=== PATIENT | female | born 2005 | race Caucasian/White ===

== ENCOUNTER 2024-02-06 07:49 | Emergency (ER) | payer BC, OTHER ==
[~2024-02-06] VITALS: Ht 157.5 cm; Wt 47.4 kg
[~2024-02-06 07:49] MED LIST: NO HOME MEDS
[2024-02-06 08:32] VITALS: BP 112/68; PULSE 78; TEMP 97.3; O2SAT 100
[2024-02-06] MEDS ORDERED: [UNRECOGNIZED DRUG - OTHER] (08:39)
[2024-02-06] MEDS ORDERED: TRIF7.5D5 RIGHTEYE (08:39)
[2024-02-06 10:05] LABS: ALANINE AMINOTRANSFERASE 23 U/L (12-78); ALKALINE PHOSPHATASE 63 IU/L (20-180); ANION GAP 13 (8-16); ASPARTATE AMINO TRANSFERASE 22 U/L (10-37); BILIRUBIN,TOTAL 0.7 MG/DL (0.1-1.0); BLOOD UREA NITROGEN 19 MG/DL (7-18); BUN/CREATININE RATIO 25.7 (10.0-20.0); CALCIUM 8.6 MG/DL (8.5-10.1); CHLORIDE 104 MMOL/L (99-107); CREATININE 0.74 MG/DL (0.40-0.90); GLUCOSE 90 MG/DL (70-104); SODIUM 142 MMOL/L (135-145); TOTAL CARBON DIOXIDE 25.3 MMOL/L (24-32); TOTAL PROTEIN 8.1 G/DL (6.4-8.2); eCRCL 92 ML/MIN; eGFR > 90 ML/MIN
[2024-02-06 10:10] LABS: POTASSIUM 3.5 MMOL/L (3.5-5.1)
[2024-02-06 10:11] LABS: HCG SERUM QL NEGATIVE
[2024-02-06 10:38] LABS: BILIRUBIN,URINE NEGATIVE (Neg); COLOR,URINE YELLOW (Yellow); GLUCOSE, URINE NEGATIVE (Neg); KETONES,URINE 40 mg/dl (Neg); LEUKOCYTE ESTERASE ,URINE NEGATIVE (Neg); NITRITES, URINE NEGATIVE (Neg); OCCULT BLOOD,URINE TRACE-INTACT (Neg); PH,URINE 5.5 (4.8-8.0); PROTEIN,URINE TRACE mg/dl (Neg); UROBILINOGEN,URINE 0.2 E.U/dL (0.2-1.0)
[2024-02-06 10:39] LABS: CLARITY,URINE SLIGHTLY CLOUDY (Clear); UA COLLECTION TYPE CLN CATCH MIDSTREAM
[2024-02-06 10:47] LABS: MUCUS STRANDS MODERATE /LPF (Neg); SQUAMOUS EPITHELIAL CELL,UR MODERATE /LPF (FEW)
[2024-02-06 10:48] LABS: BACTERIA,URINE FEW /HPF (Neg); RBC,URINE 0-2 /HPF (0-2); WBC,URINE 0-4 /HPF (0-4)
[2024-02-06] MEDS ORDERED: ketorolac trometh. 30mg/ml inj. IV ONE (11:10)
[2024-02-06] MEDS ORDERED: NAPR-56 PO (11:11)
[2024-02-06 11:20] VITALS: RESP 18
[2024-02-06] MEDS: ketorolac tromethamine 15mg/ml inj. IV ONE (11:20)
== END 2024-02-06 11:27 | disposition home or self-care (01) ==
LOC: ER 07:50
DX: M54.59 Other low back pain (principal); G89.29 Other chronic pain; Z79.899 Other long term (current) drug therapy; F17.200 Nicotine dependence, unspecified, uncomplicated; Z88.0 Allergy status to penicillin
CPT/HCPCS: 36415; 73502; 80053; 81001; 84703; 96374; 99284; J1885

== ENCOUNTER 2024-06-24 17:01 | Emergency (ER) | payer BC ==
[~2024-06-24] VITALS: Ht 157.5 cm; Wt 50.0 kg
[2024-06-24 18:24] LABS: BILIRUBIN,URINE NEGATIVE (Neg); CLARITY,URINE SLIGHTLY CLOUDY (Clear); COLOR,URINE YELLOW (Yellow); GLUCOSE, URINE NEGATIVE (Neg); KETONES,URINE >=80 mg/dl (Neg); LEUKOCYTE ESTERASE ,URINE NEGATIVE (Neg); NITRITES, URINE NEGATIVE (Neg); OCCULT BLOOD,URINE NEGATIVE (Neg); PH,URINE 5.5 (4.8-8.0); PROTEIN,URINE NEGATIVE (Neg); UA COLLECTION TYPE NON-SPECIFIED; UROBILINOGEN,URINE 0.2 E.U/dL (0.2-1.0)
[2024-06-24 18:26] LABS: URINE HCG NEGATIVE (NEG)
[2024-06-24 18:29] LABS: BASOPHILS # (AUTO) 0.1 X10'3 (0-0.2); EOSINOPHILS # (AUTO) 0.4 X10'3 (0-0.9); EOSINOPHILS % (AUTO) 6.5 % (0-6); HEMATOCRIT 36.2 % (35.0-45.0); LYMPHOCYTES # (AUTO) 1.7 X10'3 (1.1-4.8); LYMPHOCYTES % (AUTO) 28.6 % (21-51); MEAN CORPUSCULAR HEMOGLOBIN 28.9 PG (27.0-31.0); MEAN CORPUSCULAR HGB CONC 33.1 g/dL (33.0-36.5); MEAN CORPUSCULAR VOLUME 87.1 FL (78-98); MONOCYTES # (AUTO) 0.5 X10'3 (0-0.9); MONOCYTES % (AUTO) 8.8 % (2-12); NEUTROPHILS # (AUTO) 3.4 X10'3 (1.8-7.7); NEUTROPHILS % (AUTO) 55.1 % (42-75); PLATELET COUNT 247 X10'3 (140-440); RED BLOOD COUNT 4.15 X10'6 (4.20-5.60); RED CELL DISTRIBUTION WIDTH 13.4 % (11.5-14.5); WHITE BLOOD COUNT 6.1 X10'3 (4.5-11.0)
[2024-06-24 18:32] LABS: URINE AMPHETAMINE SCREEN NEGATIVE (Neg); URINE BARBITUATE SCREEN NEGATIVE (Neg); URINE BENZODIAZEPINES SCREEN NEGATIVE (Neg); URINE CANNABINOID SCREEN POSITIVE (Neg); URINE COCAINE SCREEN NEGATIVE (Neg); URINE METHADONE SCREEN NEGATIVE (Neg); URINE OPIATE SCREEN NEGATIVE (Neg); URINE PHENCYCLIDINE SCREEN NEGATIVE (Neg)
[2024-06-24 18:35] LABS: BACTERIA,URINE 2+ /HPF (Neg); RBC,URINE 0-2 /HPF (0-2); SQUAMOUS EPITHELIAL CELL,UR MANY /LPF (FEW)
[2024-06-24] MEDS ORDERED: LORazepam 0.5 MG tablet PO PRN (18:35)
[2024-06-24 18:48] LABS: ANION GAP 10 (8-16); BLOOD UREA NITROGEN 15 MG/DL (7-18); BUN/CREATININE RATIO 18.3 (10.0-20.0); CALCIUM 8.9 MG/DL (8.5-10.1); CHLORIDE 105 MMOL/L (99-107); CREATININE 0.82 MG/DL (0.40-0.90); ETHANOL < 10 MG/DL (<10); GLUCOSE 80 MG/DL (70-104); POTASSIUM 3.2 MMOL/L (3.5-5.1); SODIUM 140 MMOL/L (135-145); THYROID STIMULATING HORMONE 0.45 ulU/ml (0.34-4.50); TOTAL CARBON DIOXIDE 25.1 MMOL/L (24-32); eCRCL 87 ML/MIN; eGFR 90 ML/MIN
[2024-06-24] MEDS ORDERED: NAPR-996 PO (20:14)
[2024-06-24] MEDS ORDERED: HYDR-3717 PO (20:14)
[2024-06-24] MEDS ORDERED: ESCI-8 PO (20:14)
[2024-06-24] MEDS ORDERED: MIRT-87 PO (20:14)
[2024-06-24] MEDS: ondansetron 4mg rapidly disintigrating tab PO ONE (20:45)
[2024-06-24] MEDS ORDERED: hydrOXYzine 10 MG tablet PO PRN (21:25)
[2024-06-24] MEDS ORDERED: naproxen 500mg tablet PO PRN (21:25)
[2024-06-25] MEDS: mirtazapine 15mg tablet PO PRN (02:12)
[2024-06-25 07:47] LABS: ALANINE AMINOTRANSFERASE 24 U/L (12-78); ALBUMIN/GLOBULIN RATIO 1.1 (1.1-1.5); ALKALINE PHOSPHATASE 42 IU/L (20-180); ASPARTATE AMINO TRANSFERASE 27 U/L (10-37); BILIRUBIN,DIRECT 0.2 MG/DL (0-0.3); BILIRUBIN,TOTAL 0.8 MG/DL (0.1-1.0); TOTAL PROTEIN 7.6 G/DL (6.4-8.2)
[2024-06-25] MEDS: ESCITALOPRAM 10 mg tablet 10 MG TABLET PO SCH (08:36)
[2024-06-25 09:33] VITALS: BP 96/64; PULSE 68; RESP 18; TEMP 97.8; O2SAT 99
[2024-06-25] MEDS ORDERED: ESCI10TA PO (11:44)
== END 2024-06-25 12:06 | disposition home or self-care (01) ==
LOC: ER 17:01
DX: R45.851 Suicidal ideations (principal); G89.29 Other chronic pain; Z88.0 Allergy status to penicillin; Z79.899 Other long term (current) drug therapy
CPT/HCPCS: 36415; 80048; 80076; 80305; 80320; 81001; 81025; 84443; 85025; 87811; 99285

== ENCOUNTER 2025-10-15 23:54 | Emergency (ER) | payer BC ==
[~2025-10-15] VITALS: Ht 157.5 cm; Wt 45.5 kg
[~2025-10-15 23:54] MED LIST changes: +ESCI-8 PO; +ESCI10TA PO; +HYDR-3717 PO; +MIRT-87 PO; +NAPR-1168 PO
[2025-10-16 01:21] LABS: LEUKOCYTE ESTERASE ,URINE NEGATIVE (Neg); NITRITES, URINE NEGATIVE (Neg); OCCULT BLOOD,URINE NEGATIVE (Neg); URINE HCG NEGATIVE (NEG)
[2025-10-16 01:37] LABS: URINE AMPHETAMINE SCREEN NEGATIVE (Neg); URINE BARBITUATE SCREEN NEGATIVE (Neg); URINE BENZODIAZEPINES SCREEN NEGATIVE (Neg); URINE CANNABINOID SCREEN NEGATIVE (Neg); URINE COCAINE SCREEN NEGATIVE (Neg); URINE METHADONE SCREEN NEGATIVE (Neg); URINE OPIATE SCREEN NEGATIVE (Neg); URINE PHENCYCLIDINE SCREEN NEGATIVE (Neg)
[2025-10-16 01:45] LABS: CREATININE 0.81 MG/DL (0.40-0.90); TOTAL CARBON DIOXIDE 27.6 MMOL/L (24-32); eCRCL 79 ML/MIN; eGFR 90 ML/MIN
--- NOTE | 2025-10-16 01:49 | Physician Documentation ---
History of Present Illness ~ Chief Complaint: 5149 Stated Complaint: EVAL [employer] Time Seen by MD: 01:48 Primary Medical Doctor: gabo chauhan Mode of Arrival: POV HPI Patient presents to the emergency room brought in on 5150 for harm to herself. She has been arguing with her parents and began cutting herself. She denies SI. Medication Reconciliation Allergies: Coded Allergies: Penicillins (Unverified Allergy, Unknown, 06/24/24) Scheduled Escitalopram Oxalate (Escitalopram Oxalate), 1 TAB PO QAM, (Reported) Escitalopram Oxalate (Lexapro), 1 TAB PO DAILY Scheduled PRN Hydroxyzine Hcl* (Atarax*), 1-2 TAB PO BID PRN for anxiety, (Reported) Mirtazapine (Mirtazapine), 1 TAB PO HS PRN for sleep, (Reported) Naproxen (Naproxen), 1 TAB PO Q12H PRN for pain, (Reported) Miscellaneous Medications Home Med List (No Home Medications), (Reported) Past Medical History Past Medical History: Chronic Pain Past Surgical History: no surgical history Alcohol Use: None Lives In: Home Review of Systems ROS All review of systems negative except as per HPI Physical Exam Vital Signs: Temperature: 98.3, Source: Oral, Heart Rate: 97, Respiratory Rate: 16, BP: 125/87, Pulse Oximetry: 100, Weight: 45.450 Oxygen Flow Rate: 0 Physical Exam General: Patient is awake, alert, oriented x4 in no acute distress. Confrontational Head: Normocephalic and atraumatic. Eyes: Conjunctival normal. EOMI. PERRL. ENT: Mucous membranes moist. Neck: Supple, trachea is midline. Chest: Clear to auscultation bilaterally without rales, rhonchi, or wheezes. There is no accessory muscle use or retractions. Cardiac: RRR without murmurs, gallops, or rubs. Psych: Immature, demanding, dramatic Progress Results/Orders Results/Orders Orders - BOUCHRA GRESHAM MD Covid19 Binax Poc Result Entry (10/16/25 00:59) Regular Diet (10/16/25 Breakfast) Completed Orders - BOUCHRA GRESHAM MD Cbc/Diff (10/16/25 00:59) CMP (10/16/25 00:59) TSH (10/16/25 00:59) Urinalysis (10/16/25 00:59) Hcg, Ur Ql (10/16/25 00:59) Drug Screen, Urine (10/16/25 00:59) Ethanol (10/16/25 00:59) Diphenhydramine Inj (Benadryl Inj.) (10/16/25 01:45) Haloperidol Lact. (Haldol) (10/16/25 01:45) Midazolam 1 Mg/Ml 2ml Inj. (Versed 1 Mg/ (10/16/25 01:45) Potassium Cl Sr Tablet (K-Dur Tablet) (10/16/25 01:54) Medications Received in ER Medications (Trade) Dose Ordered Sig/Lissette Route PRN Reason Start Time Stop Time Status Last Admin Dose Admin (Benadryl inj.) 50 mg ONCE ONCE IM 10/16/25 01:45 10/16/25 01:46 DC 10/16/25 01:58 50 MG (Haldol) 5 mg ONCE ONCE IM 10/16/25 01:45 10/16/25 01:49 DC 10/16/25 01:59 5 MG (VERSED 1 MG/ML 2 ML inj.) 1 mg ONCE ONCE IM 10/16/25 01:45 10/16/25 01:46 DC 10/16/25 01:59 1 MG (K-DUR tablet) 20 meq ONCE STAT PO 10/16/25 01:54 10/16/25 02:02 DC 10/16/25 02:07 20 MEQ Vital Signs 10/15/25 10/16/25 10/16/25 23:58 00:06 01:59 Temp 98.3 Pulse 97 Resp 16 20 B/P (MAP) 125/87 Pulse Ox 100 O2 Flow Rate 0 Laboratory Tests Test 10/16/25 00:18 10/16/25 01:10 10/16/25 02:33 Urine Specimen Description Non-specified Urine Color Straw Urine Clarity Clear Urine pH 6.0 Urine Specific [place] <=1.005 Urine Protein Negative Urine Glucose (UA) Negative Urine Ketones Negative Urine Occult Blood Negative Urine Nitrite Negative Urine Bilirubin Negative Urine Urobilinogen 0.2 Urine Leukocyte Esterase Negative Volume Urine Centrifuged 10 ml Urine HCG, Qualitative Negative Urine Comment Urine Opiates Screen Negative Urine Methadone Screen Negative Urine Fentanyl Screen Negative Urine Barbiturates Screen Negative Urine Phencyclidine Screen Negative Urine Amphetamines Screen Negative Urine Benzodiazepines Screen Negative Urine Cocaine Screen Negative Urine Cannabinoids Screen Negative Drug Screen Comment White Blood Count 13.0 H Red Blood Count 4.63 Hemoglobin 13.6 Hematocrit 40.5 Mean Corpuscular Volume 87.5 Mean Corpuscular Hemoglobin 29.4 Mean Corpuscular Hemoglobin Concent 33.6 Red Cell Distribution Width 14.0 Platelet Count 311 Mean Platelet Volume 9.8 Neutrophils (%) (Auto) 80.4 H Lymphocytes (%) (Auto) 13.2 L Monocytes (%) (Auto) 5.3 Eosinophils (%) (Auto) 0.5 Basophils (%) (Auto) 0.6 Neutrophils # (Auto) 10.5 H Lymphocytes # (Auto) 1.7 Monocytes # (Auto) 0.7 Eosinophils # (Auto) 0.1 Basophils # (Auto) 0.1 CBC Comment Sodium Level 141 Potassium Level 3.4 L Chloride Level 103 Carbon Dioxide Level 27.6 Anion Gap 10 Blood Urea Nitrogen 13 Creatinine 0.81 Estimated GFR/1.73 m2 90 BUN/Creatinine Ratio 16.0 Glucose Level 98 Calcium Level 8.7 Total Bilirubin 0.7 Aspartate Amino Transf (AST/SGOT) 18 Alanine Aminotransferase (ALT/SGPT) 13 Alkaline Phosphatase 65 Total Protein 8.8 H Albumin 4.7 Globulin 4.1 Albumin/Globulin Ratio 1.1 Thyroid Stimulating Hormone (TSH) 1.96 Chemistry Comments Ethyl Alcohol Level 19 H Medical Decision Making Additional information obtaine: old records Findings Patient presents to the emergency room on a written 5150. Labs reviewed and that has no evidence of major pathologic derangements. Patient is medically cleared for mental health evaluation Differential Dx:Considerations: Include: Alcohol abuse, Anxiety, Bipolar disorder, Conversion disorder, Depression, Encephaloathy, Homicidal, Panic disorder, Personality disorder, Schizophrenia, Substance abuse, Suicidal, Other Departure Disposition: 30 STILL A PATIENT Impression: Primary Impression: Psychosis Condition: Guarded Referrals: NO PRIMARY CARE PROVIDER (PCP) Signature Scribe Signature: No scribe Attestation: The note accurately reflects work and decisions made by me.Bouchra Gresham MD 10/16/25 02:51 BOUCHRA GRESHAM MD Oct 16, 2025 01:49
[2025-10-16 01:56] LABS: ETHANOL 19 MG/DL (<10)
[2025-10-16] MEDS: midazolam 1 mg/ML 2ml injection IM ONE (01:59)
[2025-10-16] MEDS: haloperidol lactate 5mg/ml inj IM ONE (01:59)
[2025-10-16] MEDS: potassium Cl 20 mEq SR tablet PO STA (02:07)
[2025-10-16 02:08] LABS: UA COLLECTION TYPE NON-SPECIFIED
[2025-10-16 02:17] LABS: MEAN PLATELET VOLUME 9.8 FL (7.4-10.4); RED CELL DISTRIBUTION WIDTH 14.0 % (11.5-14.5)
[2025-10-16 18:23] VITALS: BP 126/80; PULSE 74; RESP 18; TEMP 98.1; O2SAT 99
== END 2025-10-16 18:35 | disposition home or self-care (01) ==
LOC: ER 23:55
DX: F29 Unspecified psychosis not due to a substance or known physiological condition (principal); G89.29 Other chronic pain; Z88.0 Allergy status to penicillin; Z79.899 Other long term (current) drug therapy; Z20.822 Contact with and (suspected) exposure to COVID-19
CPT/HCPCS: 36415; 80053; 80305; 80320; 81003; 81025; 84443; 85025; 87811; 96372; 99285; A6223; J1200; J1630; J2250; A6449